=== PATIENT | female | born 1950 | race Caucasian/White ===

== ENCOUNTER 2018-06-07 07:47 | Day surgery (SDC) | payer MEDICARE, OTHER ==
[2018-06-07] MEDS ORDERED: Sodium Chloride 0.9% 10 ML Syringe FLUSH PRN (08:00)
[2018-06-07] MEDS ORDERED: Lactated Ringers 1,000 ML IV SCH (08:00)
[2018-06-07] MEDS ORDERED: EPINEPHrine 1:10,000 1 MG/10 ML Syringe ONE (08:45)
[2018-06-07] MEDS ORDERED: Midazolam 1 MG/ML 2 ML SDV IV ONE (08:51)
[2018-06-07] MEDS ORDERED: fentaNYL 100 MCG/2 ML SDV IV ONE (08:51)
[2018-06-07] MEDS ORDERED: Midazolam 1 MG/ML 2 ML SDV ONE (08:51)
[2018-06-07] MEDS ORDERED: Propofol 200 MG/20 ML SDV IV ONE (08:51)
[2018-06-07] MEDS ORDERED: Propofol 200 MG/20 ML SDV ONE (08:51)
[2018-06-07] MEDS ORDERED: fentaNYL 100 MCG/2 ML SDV ONE (08:51)
[2018-06-07] MEDS ORDERED: Lidocaine 2% 5 ML SDV ONE (08:52)
--- NOTE | 2018-06-07 09:37 | PCM.OPNOTE ---
- General Post-Op/Procedure Note Date of Surgery/Procedure: 06/07/18 Operative Procedure(s): Upper GI endoscopy and polypectomy and colonoscopy. Findings: A small polyp was noticed at the antrum of the stomach. Otherwise negative upper GI endoscopy. Negative colonoscopy. Pre Op Diagnosis: Persistent upper abdominal pain, nausea vomiting. Rule out peptic ulcer disease gastric outlet obstruction, history of Crohn's disease. Anesthesia Technique: MAC Primary Surgeon: Hannah Caputo Complications: None Condition: Good Free Text/Narrative:: INFORMED CONSENT: Patient is here today for elective upper GI endoscopy. All aspects of this procedure have been discussed with the patient. All possible complications also, including possibility of perforation, infection, pain, bleeding, numbness of the throat, swallowing difficulty and unknown complications. In the event of perforation the patient may need surgical exploration to repair the defect. The patient understands fully well. Patient did not have any further questions for me at the end of my interview. The patient wishes for me to proceed. INSTRUMENT USED: Video gastroscope ANESTHESIA: [MAC] ASA CLASSIFICATION 2 PROCEDURE PERFORMED: [Upper gastrointestinal endoscopy and polypectomy] PHARYNX: Normal. ESOPHAGUS: Normal. Proximal: Normal. Middle: Normal. Lower: Normal. GE Junction: Normal. 23 cm from the incisors. STOMACH: Normal. Cardia: Normal. Fundus: Normal. Lesser Curvature: Normal. Greater Curvature: Normal. Antrum: A small polyp was identified and removed using the cold biopsy forceps. Pylorus: Normal. DUODENUM: Normal. First Part: Normal. Second Part: Normal. Third Part: Normal. RETROFLEXION: Normal. BIOPSY: As above.. TOLERANCE: Excellent. COMPLICATIONS: None. Small polyp of the antrum otherwise negative. INFORMED CONSENT: Patient is here today for elective colonoscopy. All aspects of this procedure have been discussed with the patient. All possible complications also, including possibility of perforation, infection, pain, bleeding and unknown complications. In the event of perforation patient may need to have abdominal exploration, colon resection, colostomy and even was discussed. Anesthetic complications were handled by anesthesia department. The patient understands fully well. Patient did not have any further questions for me at the end of my interview. The patient wishes for me to proceed. PREOPERATIVE DIAGNOSIS/INDICATIONS: [Abdominal pain, cramping in nature. Frequent episodes of vomiting. Irregular bowel habits. History of Crohn's disease.] POSTOPERATIVE DIAGNOSIS: [Normal colonoscopy.] INSTRUMENT USED: [employer]us videocolonoscope. ASA CLASSIFICATION: [2] ANESTHESIA: Continuous EKG, oximetry and intermittent blood pressure and respiratory monitoring were performed throughout the procedure. IV Versed and Fentanyl were administered. PROCEDURE PERFORMED: Colonoscopy POSITIONS OF PATIENT: Left lateral. RECTUM: Normal. SIGMOID COLON: Normal. DESCENDING COLON: Normal. SPLENIC FLEXURE: Normal. TRANSVERSE COLON: Normal. HEPATIC FLEXURE: Normal. ASCENDING COLON: Normal. CECUM: Normal. ILEOCECAL VALVE: Normal. The small bowel was entered into at the ileocecal junction and there was no evidence of inflammation or obstruction. BIOPSY: None. TOLERANCE: Excellent. COMPLICATIONS: None.
[2018-06-07 12:02] LABS: CHLORIDE,CL 101 mmol/L (98-115); SODIUM,NA 139 mmol/L (136-145)
[2018-06-07] MEDS ORDERED: Diatrizoate Meglumine/Diatrizoate Sodium 37% 120 ML Bottle PO ONE (12:52)
[2018-06-07] MEDS ORDERED: Sodium Chloride 0.9% 50 ML IV ONE (12:52)
[2018-06-07] MEDS ORDERED: Iopamidol 755 Mg/ML 75 ML Bottle IVPUSH ONE (12:52)
== END 2018-06-07 13:40 | disposition home or self-care (01) ==
LOC: KA.SDS 07:47
PROVIDERS: ATTEND Family Medicine
DX: K50.90 Crohn's disease, unspecified, without complications (principal); K21.9 Gastro-esophageal reflux disease without esophagitis; K31.7 Polyp of stomach and duodenum; E78.5 Hyperlipidemia, unspecified; Z79.899 Other long term (current) drug therapy
CPT/HCPCS: 00813; 36415; 43239; 45378; 74177; 80048; 88305; J2250; J2704; J3010; J7050; J7120; Q9963; Q9967

== ENCOUNTER 2020-01-30 07:02 | Day surgery (SDC) | payer MEDICARE, OTHER ==
[~2020-01-30 07:02] MED LIST: Lactated Ringers 1,000 ML IV SCH; Sodium Chloride 0.9% 10 ML Syringe FLUSH PRN
[2020-01-30] MEDS ORDERED: Propofol 200 MG/20 ML SDV IV ONE (07:03)
[2020-01-30] MEDS ORDERED: Midazolam 1 MG/ML 2 ML SDV IV ONE (07:03)
[2020-01-30] MEDS ORDERED: Glycopyrrolate 0.2 MG/ML 5 ML MDV IV ONE (07:03)
[2020-01-30] MEDS ORDERED: Midazolam 1 MG/ML 2 ML SDV ONE (07:09)
[2020-01-30] MEDS ORDERED: Propofol 200 MG/20 ML SDV ONE (07:09)
[2020-01-30] MEDS ORDERED: EPINEPHrine 1:10,000 1 MG/10 ML Syringe ONE ×2 (07:32→08:32)
--- NOTE | 2020-01-30 08:49 | PCM.OPNOTE ---
- General Post-Op/Procedure Note Date of Surgery/Procedure: 01/30/20 Operative Procedure(s): Upper gastrointestinal endoscopy and biopsies. Findings: Antral gastritis and to antral gastric ulcers. Mild esophagitis also noted. 3 cm hiatal hernia noted. Pre Op Diagnosis: Persistent epigastric and upper abdominal pain and dyspepsia. Post-Op Diagnosis: 2 antral gastric ulcers, gastritis and mild esophagitis. Anesthesia Technique: MAC Primary Surgeon: Hannah Caputo Condition: Good Free Text/Narrative:: INFORMED CONSENT: Patient is here today for elective upper GI endoscopy. All aspects of this procedure have been discussed with the patient. All possible complications also, including possibility of perforation, infection, pain, bleeding, numbness of the throat, swallowing difficulty and unknown complications. In the event of perforation the patient may need surgical exploration to repair the defect. The patient understands fully well. Patient did not have any further questions for me at the end of my interview. The patient wishes for me to proceed. INSTRUMENT USED: Video gastroscope ANESTHESIA: [MAC] ASA CLASSIFICATION: [2] PROCEDURE PERFORMED: Upper gastrointestinal endoscopy and biopsies Tolerance: Excellent. PHARYNX: Normal. ESOPHAGUS: Normal. Proximal: Normal. Middle: Normal. Lower: 3 cm hiatal hernia noted. GE junction : Mild inflammatory changes noted of the lower end of the esophagus . STOMACH: Normal. Cardia: Normal. Fundus: Normal. Lesser Curvature: Normal. Greater Curvature: Normal. Antrum: Moderate inflammation noted. 2 shallow 1 cm ulcers noted. Biopsies were taken from the edge of the ulcer.. Pylorus: Normal. DUODENUM: Normal. First Part: Normal. Second Part: Normal. Third Part: Normal. RETROFLEXION: Normal. BIOPSY: From the edge of the antral gastric ulcer. Biopsies taken for documentation. TOLERANCE: Excellent. COMPLICATIONS: None. Final diagnosis: #1: 3 cm hiatal hernia with mild inflammation #2 shallow ulcers of the antrum and moderate antral gastritis noted.
== END 2020-01-30 10:00 | disposition home or self-care (01) ==
LOC: KA.SDS 07:02
PROVIDERS: ATTEND Family Medicine
DX: K25.9 Gastric ulcer, unspecified as acute or chronic, without hemorrhage or perforation (principal); K44.9 Diaphragmatic hernia without obstruction or gangrene; K21.00 Gastro-esophageal reflux disease with esophagitis, without bleeding; F32.9 Major depressive disorder, single episode, unspecified; E78.5 Hyperlipidemia, unspecified; Z79.899 Other long term (current) drug therapy
CPT/HCPCS: 00731; 43239; J0171; J2250; J2704; J3490; J7120

== ENCOUNTER 2020-04-02 07:08 | Day surgery (SDC) | payer MEDICARE, OTHER ==
[2020-04-02] MEDS ORDERED: EPINEPHrine 1:10,000 1 MG/10 ML Syringe ONE (08:01)
[2020-04-02] MEDS ORDERED: Midazolam 1 MG/ML 2 ML SDV ONE (08:08)
[2020-04-02] MEDS ORDERED: Glycopyrrolate 0.2 MG/ML SDV ONE (08:09)
[2020-04-02] MEDS ORDERED: Lidocaine 2% 5 ML SDV ONE (08:09)
[2020-04-02] MEDS ORDERED: Propofol 200 MG/20 ML SDV ONE ×2 (08:09→08:47)
[2020-04-02] MEDS ORDERED: Propofol 200 MG/20 ML SDV IV ONE (08:35)
--- NOTE | 2020-04-02 09:22 | PCM.OPNOTE ---
- General Post-Op/Procedure Note Date of Surgery/Procedure: 04/02/20 Operative Procedure(s): Upper GI endoscopy, colonoscopy Findings: Previously discovered antral ulcers are no longer present. Ulcers healed. Previous esophagitis healed. Multiple diverticuli of the sigmoid colon which is also moderately tortuous. Pre Op Diagnosis: Recently diagnosed prepyloric antral gastric ulcers. Chronic diarrhea with constipation. Previous history of Crohn's disease. Post-Op Diagnosis: Healed gastric ulcers. No evidence of esophagitis. Multiple diverticuli of the sigmoid colon. Tortuous sigmoid colon. Otherwise negative colonoscopy. Anesthesia Technique: Local, MAC Primary Surgeon: Hannah Caputo Anesthesia Provider: Jania Álvarez Condition: Good Free Text/Narrative:: INFORMED CONSENT: Patient is here today for elective colonoscopy. All aspects of this procedure have been discussed with the patient. All possible complications also, including possibility of perforation, infection, pain, bleeding and unknown complications. In the event of perforation patient may need to have abdominal exploration, colon resection, colostomy and even was discussed. Anesthetic complications were handled by anesthesia department. The patient understands fully well. Patient did not have any further questions for me at the end of my interview. The patient wishes for me to proceed. PREOPERATIVE DIAGNOSIS/INDICATIONS: [Tonic diarrhea, previous history of Crohn's disease.] POSTOPERATIVE DIAGNOSIS: [Multiple diverticulosis of the sigmoid colon, otherwise negative. No evidence of inflammatory bowel disease.] INSTRUMENT USED: Olympus videocolonoscope. ASA CLASSIFICATION: [2] ANESTHESIA: Continuous EKG, oximetry and intermittent blood pressure and respiratory monitoring were performed throughout the procedure. IV Versed and Fentanyl were administered. PROCEDURE PERFORMED: Colonoscopy POSITIONS OF PATIENT: Left lateral. RECTUM: Normal. SIGMOID COLON: Multiple diverticuli and long tortuous sigmoid colon noted.. DESCENDING COLON: Normal. SPLENIC FLEXURE: Normal. TRANSVERSE COLON: Normal. HEPATIC FLEXURE: Normal. ASCENDING COLON: Normal. CECUM: Normal. ILEOCECAL VALVE: Normal. BIOPSY: None. TOLERANCE: Excellent. COMPLICATIONS: None. INFORMED CONSENT: Patient is here today for elective upper GI endoscopy. All aspects of this procedure have been discussed with the patient. All possible complications also, including possibility of perforation, infection, pain, ble eding, numbness of the throat, swallowing difficulty and unknown complications. In the event of perforation the patient may need surgical exploration to repair the defect. The patient understands fully well. Patient did not have any further questions for me at the end of my interview. The patient wishes for me to proceed. INSTRUMENT USED: Video gastroscope ANESTHESIA: [MAC] ASA CLASSIFICATION: [2] PROCEDURE PERFORMED: [] PHARYNX: Normal. ESOPHAGUS: Normal. Proximal: Normal. Middle: Normal. Lower: Normal. Previously noted esophagitis improved remarkably. GE Junction: Normal. STOMACH: Normal. Cardia: Normal. Fundus: Normal. Lesser Curvature: Normal. Greater Curvature: Normal. Antrum: Normal, previously noted gastric ulcers and antral ulcers are no longer present. Pylorus: Normal. DUODENUM: Normal. First Part: Normal. Second Part: Normal. Third Part: Normal. RETROFLEXION: Normal. BIOPSY: None. TOLERANCE: Excellent. COMPLICATIONS: None. Final diagnosis: Antral gastric ulcers. Healed esophagitis.
== END 2020-04-02 10:23 | disposition home or self-care (01) ==
LOC: KA.SDS 07:08
PROVIDERS: ATTEND Family Medicine
DX: K52.9 Noninfective gastroenteritis and colitis, unspecified (principal); K25.9 Gastric ulcer, unspecified as acute or chronic, without hemorrhage or perforation; K59.00 Constipation, unspecified; K57.30 Diverticulosis of large intestine without perforation or abscess without bleeding; K21.9 Gastro-esophageal reflux disease without esophagitis; F32.9 Major depressive disorder, single episode, unspecified; Z98.890 Other specified postprocedural states; Z79.899 Other long term (current) drug therapy
CPT/HCPCS: J2250; J2704; J3490; J7120

== ENCOUNTER 2021-03-06 07:01 | Day surgery (SDC) | payer MEDICARE ==
[~2021-03-06 07:01] MED LIST changes: -Lactated Ringers 1,000 ML IV SCH
[2021-03-06] MEDS ORDERED: EPINEPHrine 1:10,000 1 MG/10 ML Syringe ONE (07:29)
[2021-03-06] MEDS: Lactated Ringers 1,000 ML IV SCH (07:30)
[2021-03-06] MEDS ORDERED: Midazolam 1 MG/ML 2 ML SDV ONE (07:59)
[2021-03-06] MEDS ORDERED: Propofol 200 MG/20 ML SDV ONE (07:59)
[2021-03-06] MEDS ORDERED: Lidocaine 2% 5 ML SDV ONE (08:00)
[2021-03-06 10:03] VITALS: BP 111/67; PULSE 75
--- NOTE | 2021-03-06 10:31 | PCM.OPNOTE ---
- General Post-Op/Procedure Note Date of Surgery/Procedure: 03/06/21 Operative Procedure(s): Upper and lower GI endoscopy. Findings: 5 cm hiatal hernia, otherwise negative upper GI endoscopy. Negative colonoscopy. Pre Op Diagnosis: History of melena, history of peptic ulcer disease, history of Crohn's disease Post-Op Diagnosis: Normal upper and lower GI endoscopy. No cause for the bleeding was found on today's examination. Anesthesia Technique: [facility] Primary Surgeon: Hannah Caputo Complications: None Condition: Good Free Text/Narrative:: INFORMED CONSENT: Patient is here today for elective upper GI endoscopy. All aspects of this procedure have been discussed with the patient. All possible complications also, including possibility of perforation, infection, pain, bleeding, numbness of the throat, swallowing difficulty and unknown complications. In the event of perforation the patient may need surgical ex ploration to repair the defect. The patient understands fully well. Patient did not have any further questions for me at the end of my interview. The patient wishes for me to proceed. INSTRUMENT USED: Video gastroscope ANESTHESIA: [MAC] ASA CLASSIFICATION: [2] PROCEDURE PERFORMED: [Upper GI endoscopy] PHARYNX: Normal. ESOPHAGUS: Normal. Proximal: Normal. Middle: Normal. Lower: Normal. GE Junction: Normal except for 5 cm hiatal hernia without inflammation. STOMACH: Normal. Cardia: Normal. Fundus: Normal. Lesser Curvature: Normal. Greater Curvature: Normal. Antrum: Normal. Pylorus: Normal. DUODENUM: Normal. First Part: Normal. Second Part: Normal. Third Part: Normal. RETROFLEXION: Normal. BIOPSY: None. TOLERANCE: Excellent. COMPLICATIONS: None. INFORMED CONSENT: Patient is here today for elective colonoscopy. All aspects of this procedure have been discussed with the patient. All possible complications also, including possibility of perforation, infection, pain, bleeding and unknown complications. In the event of perforation patient may need to have abdominal exploration, colon resection, colostomy and even was discussed. Anesthetic complications were handled by anesthesia department. The patient understands fully well. Patient did not have any further questions for me at the end of my interview. The patient wishes for me to proceed. PREOPERATIVE DIAGNOSIS/INDICATIONS: [History of melena.] POSTOPERATIVE DIAGNOSIS: [Normal colonoscopy without any evidence for bleeding lesion.] INSTRUMENT USED: [email or web address] videocolonoscope. ASA CLASSIFICATION: [2] ANESTHESIA: Continuous EKG, oximetry and intermittent blood pressure and respiratory monitoring were performed throughout the procedure. IV Versed and Fentanyl were administered. PROCEDURE PERFORMED: Colonoscopy POSITIONS OF PATIENT: Left lateral. RECTUM: Normal. SIGMOID COLON: Normal. DESCENDING COLON: Normal. SPLENIC FLEXURE: Normal. TRANSVERSE COLON: Normal. HEPATIC FLEXURE: Normal. ASCENDING COLON: Normal. CECUM: Normal. ILEOCECAL VALVE: Normal. BIOPSY: None. TOLERANCE: Excellent. COMPLICATIONS: None. Final diagnosis: No evidence of bleeding noted during this examination of the upper and lower gastrointestinal tracts.
== END 2021-03-06 11:20 | disposition home or self-care (01) ==
LOC: KA.SDS 07:01
PROVIDERS: ATTEND Family Medicine
DX: K92.1 Melena (principal); G25.81 Restless legs syndrome; K21.9 Gastro-esophageal reflux disease without esophagitis; F41.9 Anxiety disorder, unspecified; F32.9 Major depressive disorder, single episode, unspecified; E78.5 Hyperlipidemia, unspecified; Z87.11 Personal history of peptic ulcer disease; Z87.19 Personal history of other diseases of the digestive system; Z79.899 Other long term (current) drug therapy
CPT/HCPCS: 00813; J2250; J2704; J7120